=== PATIENT | male | born 1970 | race Caucasian/White ===

== ENCOUNTER 2024-01-17 10:24 | Emergency (ER) | payer OTHER ==
[~2024-01-17] VITALS: Ht 154.9 cm; Wt 72.6 kg
[2024-01-17 10:37] VITALS: BP 150/76; PULSE 76; RESP 16; TEMP 98.1; O2SAT 99
[2024-01-17] MEDS ORDERED: AMOX-1230 PO (11:58)
[2024-01-17] MEDS ORDERED: IBUP-2213 PO (11:58)
[2024-01-17] MEDS ORDERED: COROTSUS LEFT EAR (11:58)
== END 2024-01-17 12:06 | disposition home or self-care (01) ==
LOC: MED 10:24
DX: H60.92 Unspecified otitis externa, left ear (principal)
CPT/HCPCS: 99283